=== PATIENT | male | born 1960 | race Caucasian/White ===

== ENCOUNTER 2018-03-23 16:46 | Inpatient (IN) | payer OTHER ==
[~2018-03-23] VITALS: Ht 177.8 cm; Wt 61.2 kg
--- NOTE | 2018-03-23 17:05 | NUR ---
BBRA 39: CP, PT STATES HE'S "WITHDRAWING FROM [facility]". REPORTS SOB, TACHY. SEEN BY MD FOR EVAL. PT [id number]. SAFETY AND COMFORT MEASURES PROVIDED. WILL MONITOR.
[2018-03-23 17:23] LABS: BASOPHILS # (AUTO) 0.1 /CMM (0.0-0.2); MONOCYTES # (AUTO) 0.6 /CMM (0.1-1.30)
[2018-03-23 17:28] LABS: BASOPHILS % (AUTO) 1.3 % (0.0-2.0); EOSINOPHILS % (AUTO) 0.7 % (0.0-6.0); HEMATOCRIT 43 % (39-51); HEMOGLOBIN 14.1 g/dL (13.5-17.5); LYMPHOCYTES # (AUTO) 1.1 /CMM (0.8-4.8); LYMPHOCYTES % (AUTO) 16.6 % (20.0-44.0); MEAN CORPUSCULAR HGB CONC 33 g/dl (31.0-36.0); MEAN CORPUSCULAR VOLUME 83 fL (80-96); MONOCYTES % (AUTO) 9.2 % (2.0-12.0); NEUTROPHILS # (AUTO) 4.7 /CMM (1.8-8.9); NEUTROPHILS % (AUTO) 72.2 % (43.0-81.0); RDW COEFFICIENT OF VARIATION 16.4 (11.5-15.0); RED BLOOD CELL COUNT(AUTO) 5.18 MIL/uL (4.5-6.0); WHITE BLOOD COUNT (AUTO) 6.5 K/uL (4.3-11.0)
[2018-03-23 17:30] LABS: CREATININE 0.8 mg/dL (0.6-1.3); POTASSIUM 4.4 mmol/L (3.5-5.1)
[2018-03-23] MEDS ORDERED: ASPIRIN 81 MG TAB.CHEW PO ONE (17:30)
[2018-03-23 17:35] LABS: INR 1.13 (0.85-1.15)
[2018-03-23] MEDS ORDERED: ASPIRIN EC 325 MG TABLET.DR PO ONE (17:38)
[2018-03-23 17:39] LABS: TROPONIN I 0.023 ng/mL (0.00-0.056)
[2018-03-23] MEDS ORDERED: ASPIRIN 325 MG TABLET ONE (17:39)
--- NOTE | 2018-03-23 17:41 | NUR ---
VANESSA AT BS.
[2018-03-23] MEDS ORDERED: LISI10TA5 PO (18:09)
[2018-03-23] MEDS ORDERED: TAMS-12 PO (18:09)
[2018-03-23 18:29] LABS: LYMPHOCYTES % (MANUAL) 8 % (16-48); MONOCYTES % (MANUAL) 10 % (0-11.0); NEUTROPHILS % (MANUAL) 82 (42-76)
[2018-03-23 20:00] VITALS: BP 139/96
--- NOTE | 2018-03-23 20:13 | NUR ---
CALLED [facility] FOR PANEL CALL AND DR CEDILLO WAS PAGED.
--- NOTE | 2018-03-23 20:21 | NUR ---
PT ASSIGNED TO BED 111-2
--- NOTE | 2018-03-23 20:21 | NUR ---
DR. CEDILLO SPEAKING TO DR. GONZALEZ REGARDING ADMISSION.
--- NOTE | 2018-03-23 20:24 | NUR ---
GAVE REPORT TO DMITRIY BOBBY FOR FERNIE
--- NOTE | 2018-03-23 20:56 | NUR ---
TRANSFERRED PT TO 111-2 PER [facility] PROTOCOL
[2018-03-23] MEDS ORDERED: IV NS 0.9% 1,000 ML IV PRN (21:31)
[2018-03-23 21:52] LABS: PLATELET COUNT (AUTO) 106 /CMM (150-450)
[2018-03-23] MEDS ORDERED: MAG HYDROX/AL HYDROX/SIMETH 30 ML UDC PO PRN (22:00)
[2018-03-23] MEDS ORDERED: ONDANSETRON HCL/PF 4 MG/2 ML VIAL IVP PRN (22:00)
[2018-03-23] MEDS ORDERED: Z GUARD REMEDY 2 OZ OINT TP PRN (22:00)
[2018-03-23] MEDS ORDERED: ACETAMINOPHEN 325 MG TABLET PO PRN (22:00)
[2018-03-23] MEDS ORDERED: MAGNESIUM HYDROXIDE 30 ML UDC PO PRN (22:00)
--- NOTE | 2018-03-23 22:37 | NUR ---
INITIAL ECHO SHOWED EF 18%~. ADVISED CHARGE NURSE (NELLY) AND ATTENDING RN (SUSAN) OF PREL. RESULTS. RN SPOKE AND RELAYED RESULTS TO DR. CEDILLO.
[2018-03-23] MEDS ORDERED: MORPHINE SULFATE INJ 2 MG/ML DISP.SYRIN IV PRN (23:00)
[2018-03-23] MEDS ORDERED: MORPHINE SULFATE INJ 4 MG/ML DISP.SYRIN IV PRN (23:00)
[2018-03-23] MEDS: ZOLPIDEM TARTRATE 5 MG TABLET PO PRN (23:44)
[2018-03-24] VITALS: BP_SYST 113; BP_SYST 147; BP_DIAS 109; BP_DIAS 77
[2018-03-24] MEDS: HYDROCODONE/APAP 5/325MG 1 EACH TABLET PO PRN ×2 (00:50→18:52)
[2018-03-24] MEDS ORDERED: METOPROLOL TARTRATE 25 MG TABLET PO PRN (02:00)
[2018-03-24 04:00] VITALS: BP 141/103
--- NOTE | 2018-03-24 06:58 | NUR ---
RN NOTES RECEIVED PATIENT AT AROUND 2100 FROM ER VIA STRETCHER ACCOMPANIED BY 2 STAFF IN STABLE CONDITION. NO DISTRESS NOTED. VITAL SIGNS WNL ALERT AND ORIENTED. VERBALLY ABLE TO COMMUNICATE NEEDS. ABLE TO AMBULATE WITH ASSIST TO THE BATHROOM. SKIN ASSESSMENT DONE. AT ABOUT 2200, PATIENT'S EF WAS 18% AND COMPLAINING OF DIFFICULTY BREATHING, NAUSEA. OBSERVED TO BE VERY RESTLESS. CALLED MD AND SPOKE WITH DR CEDILLO, OBTAINED ORDER FOR MORPHINE 2MG Q4H PRN. NOTED AND CARRIED OUT, WITH HELP. AT ABOUT 2300, PATIENT NOTED TO BE STILL IN PAIN. NORCO GIVEN AND AMBIEN FOR SLEEP. NOTED WITH RELIEF. CONTINUOUS MONITORING DONE. WILL ENDORSE TO AM SHIFT FOR CONTINUITY OF CARE
[2018-03-24 08:00] VITALS: BP 129/106
[2018-03-24] MEDS ORDERED: ASPIRIN 81 MG TAB.CHEW PO SCH (09:00)
[2018-03-24] MEDS ORDERED: TAMSULOSIN 0.4 MG CAP.SR.24H PO SCH (09:00)
[2018-03-24] MEDS ORDERED: ENOXAPARIN SODIUM 40 MG/0.4 ML DISP.SYRIN SQ SCH ×2 (09:00→10:00)
[2018-03-24] MEDS ORDERED: LISINOPRIL (10MG) 10 MG TABLET PO SCH (09:00)
[2018-03-24] MEDS ORDERED: CARVEDILOL 3.125 MG TABLET PO SCH (09:00)
[2018-03-24] MEDS ORDERED: SPIRONOLACTONE 25 MG TABLET PO SCH (09:30)
[2018-03-24] MEDS: CARVEDILOL 3.125 MG TABLET PO SCH ×2 (09:50→21:47)
[2018-03-24] MEDS: LORAZEPAM 0.5 MG TABLET PO PRN ×2 (10:00→18:51)
[2018-03-24] MEDS: ALBUTEROL FS 2.5 MG/3 ML VIAL.NEB NEB SCH ×2 (10:13→15:45)
[2018-03-24 12:00] VITALS: BP 121/92
[2018-03-24] MEDS ORDERED: ALBUTEROL FS 2.5 MG/3 ML VIAL.NEB NEB SCH (13:30)
[2018-03-24 16:00] VITALS: BP 123/87
[2018-03-24 20:00] VITALS: BP 117/85
--- NOTE | 2018-03-24 20:00 | NUR ---
TELE-1/TRAIN STATION SERVER PT HAVING A VERBALLY AGGRESSIVE OUTBURST TOWARDS HOSPITAL STAFF. USING EXTREMELY OFFENSIVE FOUL LANGUAGE. I SPOKE WITH THE PT TO CALM HIM WITH LITTLE EFFECT. WILL CONTINUE TO MONITOR.
[2018-03-24] MEDS ORDERED: ATORVASTATIN 10 MG TABLET PO SCH (22:00)
--- NOTE | 2018-03-24 22:01 | NUR ---
Met with patient,lethargic but able to answer simple questions. Stated he is homeless and has no support system. He is ambulatory and independent with adl's. Intermediate placement was offered but patient refused. He will need assistance with transportation to his preferred destination when discharge. Addendum: 03/24/18 at 2202 by CLAIR JORDAN RN Amended: Links added.
[2018-03-25] VITALS: BP 113/77
[2018-03-25] MEDS: ALBUTEROL FS 2.5 MG/3 ML VIAL.NEB NEB SCH (00:10)
[2018-03-25] MEDS: ZOLPIDEM TARTRATE 5 MG TABLET PO PRN (00:35)
[2018-03-25 04:00] VITALS: BP 117/81
[2018-03-25 06:22] VITALS: BP 117/81
--- NOTE | 2018-03-25 06:28 | NUR ---
TELE-1/ELECTRICAL ELECTRONICS ENGINEERS PT WAS HAVING ANOTHER EXTREMELY DISRESPECTFUL OUTBURST TOWARDS MYSELF, THE NURSING STAFF AND CNAS. CALLING US "MOTHER FUCKERS" AND "PIECES OF SHIT". PT WAS ALSO SCREAMING RACIAL SLURS INCLUDING THE N-WORD AT [facility] [place]. I WAS SPEAKING TO THE PT WHEN HE PICKED UP A JUICE FROM BEDSIDE TABLE AND THREW IT INTENSELY TOWARDS ME, STRIKING ME WITH IT WITNESSED BY MACK MARIEE. WE CALLED SECURITY AND HAD TO PLACE THE PT IN RESTRAINTS FOR SAFETY. AT THAT POINT THE PT BEGAN SPITTING AT US WELL. PT IS CONTINUING TO SCREAM FROM HIS ROOM WITH INTENSELY FOUL LANGUAGE.
--- NOTE | 2018-03-25 06:45 | NUR ---
TELE-1/VARNISH MELTER PAGED PERIPHERAL EDP EQUIPMENT OPERATOR AWAITING CALL BACK.
--- NOTE | 2018-03-25 07:16 | NUR ---
TELE-1/HEEL SEAT SANDER ENDORSED TO DAY SHIFT THAT WE ARE AWAITING CALL BACK FROM [facility].
--- NOTE | 2018-03-25 07:55 | NUR ---
RN NOTES PT NOTED WITH AGITATION AND WANTED TO LEAVE HOSPITAL; PT UNCOOPERATIVE AND NONCOMPLIANT. TEACHINGS REINFORCED BUT REFUSED TO COMPLY, NO INDICATION OF ANY PAIN OR DISTRESS NOTED. DR DAMICO IN THE UNIT AND NOTIFIED BY RECLAMATION FURNACE OPERATORDMITRIY FARIAS RE PTS CONDITION AND BEHAVIOR. VERBAL ORDERS GIVEN BY DR DAMICO TO RECLAMATION FURNACE OPERATOR THAT THE PT CAN LEAVE AMA. RECLAMATION FURNACE OPERATOR AMY HAD PT SIGNED AMA FORM, PT SIGNED WILLINGLY AFTER RISK AND BENEFITS FOR AMA DISCUSSED/EXPLAINED. PT LEFT HOSP UNIT AMBULATORY WITHOUT ANY FORM OF DISTRESS ESCORTED BY SECURITY . IV LINE REMOVED BY DMITRIY GUERRERO PRIOR TO DISCHARGE. DR DAMICO INFORMED BY RECLAMATION FURNACE OPERATOR AMY RE PTS DEPARTURE.
== END 2018-03-25 08:00 | disposition left against medical advice (07) | DRG 203 ==
LOC: ER 16:48 → TELE1 20:24
PROVIDERS: ADMIT Internal Medicine; ATTEND Internal Medicine
DX: M94.0 Chondrocostal junction syndrome [Tietze] (principal); D69.6 Thrombocytopenia, unspecified; I42.9 Cardiomyopathy, unspecified; I11.0 Hypertensive heart disease with heart failure; I50.22 Chronic systolic (congestive) heart failure; J44.1 Chronic obstructive pulmonary disease with (acute) exacerbation; F15.23 Other stimulant dependence with withdrawal; F17.210 Nicotine dependence, cigarettes, uncomplicated; I10 Essential (primary) hypertension; E78.5 Hyperlipidemia, unspecified; N40.0 Benign prostatic hyperplasia without lower urinary tract symptoms; R00.0 Tachycardia, unspecified
CPT/HCPCS: 36415; 71045-TC; 80048-TC; 84484-TC; 85025-TC; 85730-TC; 87081-TC; 93307-TC; A4606; G0480; J1650; J2270; J2405; J7030; J7040; Z7610